=== PATIENT | male | born 1990 | race African-American/Black ===

== ENCOUNTER → 2023-11-22 | Outpatient (CLI) | payer OTHER | LOC: M RAD 12:05 | PROVIDERS: ATTEND Physician Assistant | DX: S39.012A Strain of muscle, fascia and tendon of lower back, initial encounter (principal); X58.XXXA Exposure to other specified factors, initial encounter; Y92.9 Unspecified place or not applicable ==

== ENCOUNTER → 2024-01-27 | Outpatient (CLI) | payer OTHER | LOC: M WUC 08:33 | PROVIDERS: ATTEND Physician Assistant | DX: S60.022A Contusion of left index finger without damage to nail, initial encounter (principal); X58.XXXA Exposure to other specified factors, initial encounter; Y92.9 Unspecified place or not applicable ==

== ENCOUNTER → 2025-04-15 | Outpatient (CLI) | payer OTHER | LOC: M PLAIMG 07:16 | PROVIDERS: ATTEND Physician Assistant | DX: M25.571 Pain in right ankle and joints of right foot (principal); G89.29 Other chronic pain ==

== ENCOUNTER → 2025-05-16 | Outpatient (CLI) | payer OTHER | LOC: M PLAIMG 06:57 | PROVIDERS: ATTEND Physician Assistant | DX: M25.552 Pain in left hip (principal) ==